=== PATIENT | male | born 1990 | race Asian ===

== ENCOUNTER 2017-08-19 16:01 | Emergency (ER) | payer OTHER ==
[~2017-08-19] VITALS: Ht 185.4 cm; Wt 63.5 kg
[2017-08-19 16:58] LABS: PLATELET COUNT 357 K/uL (142-355)
[2017-08-19 17:10] LABS: POTASSIUM 3.3 mmol/L (3.6-5.2)
[2017-08-19 20:00] VITALS: BP 106/55; TEMP 98.4
== END 2017-08-19 20:00 | disposition home or self-care (01) ==
LOC: ED 16:01
DX: A08.4 Viral intestinal infection, unspecified (principal)
CPT/HCPCS: 36415; 80053; 82150; 83690; 83735; 85027; 96374; 99284; J2405

== ENCOUNTER → 2018-09-11 14:25 | Outpatient (CLI) | payer OTHER | END | disposition home or self-care (01) | LOC: AMB 14:25 | DX: Z04.1 Encounter for examination and observation following transport accident (principal) ==

== ENCOUNTER 2021-04-06 10:01 | Outpatient (CLI) | payer OTHER | END 2021-04-06 19:04 | disposition home or self-care (01) | LOC: US 10:01 | PROVIDERS: ATTEND Nurse Practitioner Primary Care | DX: R10.11 Right upper quadrant pain (principal) ==